=== PATIENT | female | born 2000 | race Caucasian/White ===

== ENCOUNTER 2021-12-29 18:17 | Emergency (ER) | payer OTHER ==
[~2021-12-29] VITALS: Ht 165.1 cm; Wt 134.3 kg
[2021-12-29] MEDS ORDERED: Veetids 500500 MG PO (18:28)
[2021-12-29] MEDS ORDERED: IBU800 MG PO (18:28)
== END 2021-12-29 20:05 | disposition home or self-care (01) ==
LOC: ER 18:17
DX: K04.7 Periapical abscess without sinus (principal)
CPT/HCPCS: A9270